=== PATIENT | female | born 1980 | race African-American/Black ===

== ENCOUNTER 2017-03-20 15:50 | Emergency (ER) | payer OTHER ==
[~2017-03-20] VITALS: Ht 175.3 cm; Wt 60.0 kg
[2017-03-20] MEDS ORDERED: LORAZEPAM 1MG TABLET PO ONE (16:15)
[2017-03-20] MEDS ORDERED: OLANZAPINE 5MG TABLET ODT PO ONE (16:15)
[2017-03-20 16:42] LABS: CARBON DIOXIDE 29 mEq/L (21-32); CHLORIDE 104 mEq/L (98-107); ETHANOL BLOOD < 10 mg/dL
[2017-03-20 16:43] LABS: BASOPHILS % 1.1 % (0.0-2.0); EOSINOPHILS % 0.6 % (0.0-5.0); HEMATOCRIT. 28.2 % (36.0-48.0); HEMOGLOBIN. 8.6 g/dL (12.0-16.0); LYMPHOCYTES % 25.7 % (20.0-50.0); MEAN CORPUSCULAR HEMOGLOBIN 22.4 pg (28.0-32.0); MEAN PLATELET VOLUME 10.1 fl (7.4-10.4); MONOCYTES % 6.4 % (2.0-8.0); NEUTROPHILS % 66.2 % (40.0-76.0); PLATELET 223 x1000/uL (130-400); RED BLOOD CELL COUNT 3.87 mill/uL (4.2-5.4); RED CELL DISTRIBUTION WIDTH 22.4 % (11.6-14.6)
[2017-03-20 16:44] LABS: HCG SCREEN NEGATIVE
[2017-03-20 17:05] LABS: PLATELET ESTIMATE NORMAL
[2017-03-20 17:49] LABS: *AMPHETAMINES SCREEN URINE NEGATIVE (NEGATIVE); *BARBITURATES SCREEN URINE NEGATIVE (NEGATIVE); *BENZODIAZEPINES SCREEN URINE NEGATIVE (NEGATIVE); *COCAINE SCREEN URINE NEGATIVE (NEGATIVE); CANNABINOID URINE SCREEN NEGATIVE (NEGATIVE); METHADONE URINE SCREEN NEGATIVE (NEGATIVE); OPIATES URINE SCREEN NEGATIVE (NEGATIVE); PHENCYCLIDINE URINE SCREEN NEGATIVE (NEGATIVE)
[2017-03-20 23:00] VITALS: BP 106/57
== END 2017-03-21 01:00 ==
LOC: ER 16:14
DX: R45.851 Suicidal ideations (principal); F31.9 Bipolar disorder, unspecified; F20.9 Schizophrenia, unspecified
CPT/HCPCS: 36415; 80048; 80305; 80307; 80329; 84703; 85025; 99291; G0482

== ENCOUNTER 2023-11-30 07:52 | Emergency (ER) | payer MEDICARE, MEDICAID ==
[~2023-11-30] VITALS: Ht 167.6 cm; Wt 63.5 kg
[2023-11-30 08:07] VITALS: O2SAT 100
[2023-11-30] MEDS: ASPIRIN 81MG TABLET PO ONE (08:45)
[2023-11-30] MEDS: POTASSIUM CHLORIDE 20MEQ TABLET SR PO ONE (08:45)
[2023-11-30 09:58] LABS: BASOPHILS % 0.9 % (0.0-2.0); EOSINOPHILS % 1.3 % (0.0-5.0); HEMATOCRIT. 26.2 % (36.0-48.0); HEMOGLOBIN. 8.2 g/dL (12.0-16.0); LYMPHOCYTES % 15.9 % (20.0-50.0); MEAN CORPUSCULAR HGB CONC 31.4 g/dL (31.0-37.0); MEAN CORPUSCULAR VOLUME 73.2 fL (81.0-99.0); MEAN PLATELET VOLUME 9.3 fl (7.4-10.4); MONOCYTES % 7.5 % (2.0-8.0); NEUTROPHILS % 74.4 % (40.0-76.0); PLATELET 374 x1000/uL (130-400); RED BLOOD CELL COUNT 3.58 mill/uL (4.2-5.4); WHITE BLOOD COUNT 7.4 x1000/uL (4.5-11.0)
[2023-11-30 10:23] LABS: ALANINE AMINOTRANSFERASE 8 IU/L (10-49); ALBUMIN 3.8 g/dL (3.2-4.8); ASPARTATE AMINOTRANSFERASE 20 IU/L (<34); BILIRUBIN TOTAL 0.3 mg/dL (0.1-1.0); CALCIUM 8.3 mg/dL (8.7-10.4); CARBON DIOXIDE 28 mEq/L (21-32); CHLORIDE 104 mEq/L (98-107); CREATININE 0.5 mg/dL (0.6-1.0); GLUCOSE 90 mg/dL (70-105); POTASSIUM 3.4 mEq/L (3.5-5.1); PROTEIN TOTAL 6.9 g/dL (6.0-8.3); SODIUM 138 mEq/L (136-145); TROPONIN I HIGH SENSITIVITY 4 ng/L (3.0-34); UREA NITROGEN BLOOD 5 mg/dL (9-23)
[2023-11-30 10:25] LABS: ETHANOL BLOOD < 10 mg/dL (<10)
[2023-11-30 12:40] LABS: TROPONIN I HIGH SENSITIVITY 4 ng/L (3.0-34)
[2023-11-30 13:28] LABS: ADD RBC MORPHOLOGY YES
[2023-11-30 13:30] LABS: RED CELL DISTRIBUTION WIDTH 27.7 % (11.6-14.6)
[2023-11-30] MEDS ORDERED: DEXTROSE 50% WATER 50ML SYRINGE IV PRN ×2 (21:15)
[2023-11-30] MEDS ORDERED: MAGNESIUM/ALUMINUM HYDROXIDE/SIMETHICONE 30ML UDC PO PRN (21:15)
[2023-11-30] MEDS ORDERED: CLONIDINE 0.1MG TABLET PO PRN (21:15)
[2023-11-30] MEDS ORDERED: ACETAMINOPHEN 325MG TABLET PO PRN (21:15)
[2023-11-30] MEDS: ENOXAPARIN 40MG/0.4ML SYR SUBCUT SCH (23:50)
[2023-12-01] MEDS: BLOOD SUGAR DIAGNOSTIC STRIP TEST SCH (06:45)
[2023-12-01] MEDS: INSULIN LISPRO 100 UNITS/ML SUBCUT SCH (07:15)
[2023-12-01] MEDS: PANTOPRAZOLE SODIUM 40 MG/VIAL IV SCH (09:00)
[2023-12-01 09:30] VITALS: BP 109/64; PULSE 75; RESP 18; TEMP 97.9
[2023-12-01] MEDS ORDERED: ALBU6.7H15 INH (10:08)
[2023-12-01] MEDS ORDERED: IBUP-2029 PO (10:08)
[2023-12-01] MEDS ORDERED: FLUT12AE21 PO (10:08)
[2023-12-01] MEDS ORDERED: CYCL5TAB PO (10:08)
[2023-12-01] MEDS ORDERED: CETI10TA6 PO (10:08)
[2023-12-01 10:36] VITALS: BP 109/64; PULSE 75; RESP 18; TEMP 97.9
== END 2023-12-01 08:47 | disposition admitted as inpatient to this hospital (09) ==
LOC: ER 07:52 → UNDOADMIN 09:33 → 5WST 09:33 → EDBEDREQ 09:50
DX: R07.89 Other chest pain (principal); E11.9 Type 2 diabetes mellitus without complications; Z59.00 Homelessness unspecified
CPT/HCPCS: 36415; 71045; 80053; 80320; 83036; 83735; 83880; 84484; 85025; 93005; 99285; J1650; G0480

== ENCOUNTER 2024-03-02 04:38 | Emergency (ER) | payer MEDICARE, MEDICAID ==
[~2024-03-02] VITALS: Ht 175.3 cm; Wt 67.0 kg
[~2024-03-02 04:38] MED LIST: ALBU6.7H15 INH; CETI10TA6 PO; CYCL5TAB PO; FLUT12AE21 PO; IBUP-2029 PO
== END 2024-03-02 07:00 | disposition left against medical advice (07) ==
LOC: ER 05:32
DX: R51.9 Headache, unspecified (principal); Z53.21 Procedure and treatment not carried out due to patient leaving prior to being seen by health care provider

== ENCOUNTER 2024-06-19 00:05 | Emergency (ER) | payer MEDICARE, MEDICAID ==
[~2024-06-19] VITALS: Ht 167.6 cm; Wt 73.0 kg
[2024-06-19 00:23] VITALS: O2SAT 100
[2024-06-19 00:40] VITALS: TEMP 36.66960; O2SAT 99
[2024-06-19 01:09] VITALS: BP 117/75; PULSE 74; RESP 18
[2024-06-19] MEDS: IBUPROFEN 600MG TABLET PO ONE (01:09)
[2024-06-19] MEDS ORDERED: IBUP-2029 MT (01:14)
[2024-06-19 01:51] LABS: TROPONIN I HIGH SENSITIVITY < 4 ng/L (3.0-34)
== END 2024-06-19 02:34 | disposition home or self-care (01) ==
LOC: ER 00:05
DX: R07.89 Other chest pain (principal); J45.909 Unspecified asthma, uncomplicated; F19.90 Other psychoactive substance use, unspecified, uncomplicated; Z88.0 Allergy status to penicillin; Z79.899 Other long term (current) drug therapy
CPT/HCPCS: 36415; 84484; 99283

== ENCOUNTER 2024-07-21 19:43 | Emergency (ER) | payer MEDICARE, MEDICAID ==
[~2024-07-21] VITALS: Ht 167.6 cm; Wt 75.0 kg
[~2024-07-21 19:43] MED LIST changes: -CYCL5TAB PO; +CYCL5TAB3 PO; +IBUP-2029 MT
[2024-07-21 19:51] VITALS: BP 130/80; PULSE 66; RESP 16; TEMP 98.7; O2SAT 98
[2024-07-21] MEDS ORDERED: IBUP-2029 PO (19:53)
[2024-07-21] MEDS ORDERED: CYCL5TAB3 PO (19:53)
[2024-07-21] MEDS ORDERED: IBUPROFEN 600MG TABLET PO ONE (20:00)
[2024-07-21] MEDS ORDERED: METHOCARBAMOL 500MG TABLET PO ONE (20:00)
== END 2024-07-21 19:57 | disposition home or self-care (01) ==
LOC: ER 19:43
DX: S33.5XXA Sprain of ligaments of lumbar spine, initial encounter (principal); J45.909 Unspecified asthma, uncomplicated; F19.90 Other psychoactive substance use, unspecified, uncomplicated; Z88.0 Allergy status to penicillin; X58.XXXA Exposure to other specified factors, initial encounter; Y93.89 Activity, other specified; Y92.89 Other specified places as the place of occurrence of the external cause; Y99.8 Other external cause status
CPT/HCPCS: 99283

== ENCOUNTER 2024-08-02 21:35 | Emergency (ER) | payer MEDICARE, MEDICAID ==
[~2024-08-02] VITALS: Ht 165.1 cm; Wt 64.0 kg
[2024-08-02 21:59] VITALS: BP 160/110; PULSE 100; RESP 18; TEMP 98.2; O2SAT 100
== END 2024-08-02 22:00 | disposition left against medical advice (07) ==
LOC: ER 21:35
DX: R06.02 Shortness of breath (principal); Z53.21 Procedure and treatment not carried out due to patient leaving prior to being seen by health care provider